=== PATIENT | female | born 1985 | race Caucasian/White ===

== ENCOUNTER 2020-08-22 02:07 | Emergency (ER) | payer MEDICAID, SELFPAY ==
[2020-08-22 02:11] VITALS: BP 140/92; PULSE 82; RESP 18; O2SAT 98; BMI 28.3
--- NOTE | 2020-08-22 02:19 | PC.NURSE ---
PATIENT IN THE NURSES STATION, REFUSING TO WEAR A MASK, REPEATEDLY TOLD BY NURSING STAFF AND SECURITY TO STEP OUT OF THE NURSES STATION FOR PATIENT CONFIDENTIALITY. PATIENT I AM JUST GONNA LEAVE YOU WON'T HELP ME UNABLE TO COMPLETE A FULL TRIAGE BEFORE PATIENT WALKING OUT OF DEPARTMENT. STILL REFUSING TO WEAR A MASK.
== END 2020-08-22 02:36 | disposition left against medical advice (07) ==
LOC: HO.ED 02:34
PROVIDERS: Emergency Provider Emergency Medicine
DX: F19.90 Other psychoactive substance use, unspecified, uncomplicated (principal)
CPT/HCPCS: 99281; 99282

== ENCOUNTER 2023-01-24 21:33 | Inpatient (IN) | payer MEDICAID, SELFPAY ==
--- NOTE | 2023-01-24 | ECG_ITS ---
Test Reason : WEAKNESS Blood Pressure : / mmHG Vent. Rate : 094 BPM Atrial Rate : 094 BPM P-R Int : 112 ms QRS Dur : 084 ms QT Int : 368 ms P-R-T Axes : 064 067 009 degrees QTc Int : 460 ms Normal sinus rhythm Nonspecific ST abnormality Inferior leads Abnormal ECG No previous ECGs available Referred By: Generic ED Physician Electronically Signed By:JONO GRANT MD
--- NOTE | ~2023-01-24 | US_ITS ---
EXAMINATION: US OB LIMITED CLINICAL INFORMATION: Miscarriage. Dilatation and curettage performed in OR. COMPARISON: Pelvic ultrasound from 01/24/2023 TECHNIQUE: Limited sonographic imaging of the pelvis is performed using a transabdominal transducer. FINDINGS: This ultrasound examination is performed in the operating room to assist in dilatation and curettage procedure performed by Dr. Purcell. The initial images show a thickened, heterogeneous appearance of the endometrium. The final image shows that the measured endometrium is more homogeneous with thickness of 0.7 cm AP. US/US OB limited IMPRESSION: Limited sonographic imaging of the pelvis performed during dilatation and curettage procedure.
--- NOTE | ~2023-01-24 | US_ITS ---
EXAMINATION: US OBSTETRICAL ULTRASOUND CLINICAL INFORMATION: Miscarriage. COMPARISON: None available. LMP: 4 months prior. TECHNIQUE: Transabdominal ultrasound performed. FINDINGS: The uterus measures 11.6 x 7.1 x 6.5 cm. There is a thickened heterogeneous endometrium measuring 1.8 cm with areas of both increased and diminished echogenicity. There is also mixed echogenicity material within the cervical canal. No gestational sac is seen. MATERNAL ADNEXA: The right maternal ovary not seen. The left maternal ovary measures 2.5 x 1.7 x 1.3. There is a small to moderate amount of free fluid within the cul-de-sac. US/US OB <= 14 weeks fetus IMPRESSION: No intrauterine gestational sac. Thickened heterogeneous endometrium and heterogeneous material within the cervical canal. Consider spontaneous in progress. Free fluid within the cul-de-sac of uncertain significance. Ectopic is not entirely excluded and correlation with quantitative beta-hCG and follow-up needed.
[2023-01-24 21:37] VITALS: BP 105/77; PULSE 97; BMI 25.8
[2023-01-24 21:56] VITALS: BP 98/81; PULSE 89; RESP 14; TEMP 37.1; O2SAT 97
[2023-01-24 21:59] VITALS: BP 104/55
--- NOTE | 2023-01-24 22:09 | ED_ITS ---
HPI - Female Genitourinary General Chief complaint: Vaginal Bleeding Stated complaint: menstural bleeding heavy x1wk, dizzy, possible sz? Time Seen by Provider: 01/24/23 22:09 Source: patient Mode of arrival: EMS Limitations: no limitations History of Present Illness HPI Narrative: Patient's history of dysfunctional uterine bleed did not have any menstruation For last 4 months, started vaginal bleeding 1 week ago multiple pads more than 10 a day today patient started bleeding heavy and use 10 pads in last 1 hour with heavy blood clots had vasovagal syncope episode when EMS reached was sweaty and pale Related Data Allergies Allergy/AdvReac Type Severity Reaction Status Date / Time No Known Allergies Allergy Unverified 11/28/19 18:57 [No Known Allergies*] Review of Systems 2 Review of Systems: Yes all other systems are reviewed and are negative [facility] Social History Social History Smoked in Last 30 Days: No Advance Directives: No Advance Directives Information Provided: No Physical Exam 2 Vital Signs: Vital Signs: Last Vital Signs Temp 98.0 F 01/24/23 23:54 Pulse 90 01/25/23 00:26 Resp 17 01/25/23 00:26 BP 97/82 01/25/23 00:26 Pulse Ox 97 01/24/23 21:56 O2 Del Method Room Air 01/24/23 21:56 BMI result Body Mass Index 25.8 Appearance: Alert. Oriented X3. Pale and sweaty Eyes:pallor+ ENT: Pharynx normal. Oral Mucosa moist Neck: Normal inspection. Neck supple. CVS: Normal heart rate and rhythm. Pulses normal. Respiratory: No respiratory distress. Equal air entry bilateral, no wheezing/rales/rhonchi Abdomen: Soft and nontender. Bowel sounds are present, no mass palpable done by Dr. Purcell white tissue with blood clot ++ Skin: Skin warm and dry. Normal skin color. Normal skin turgor. Extremities: No lower extremity edema. No calf tenderness Neuro: Oriented X 3. No motor deficit. Medications Administered Discontinued Medications Generic Name Dose Route Start Last Admin Trade Name Freq PRN Reason Stop Dose Admin Doxycycline Monohydrate 200 mg 01/25/23 00:07 01/25/23 00:22 Doxycycline Monohydrate 100 Mg Capsule PO 01/25/23 00:08 200 mg ONCE ONE Administration Sodium Chloride 1,000 mls @ 999 mls/hr 01/24/23 22:45 01/24/23 23:33 Ns IV 01/24/23 23:45 Infused .Q1H1M ONE Infusion Sodium Chloride 100 mls @ 100 mls/hr 01/24/23 22:46 01/25/23 00:08 Ns IV 01/24/23 23:45 100 mls/hr ONCE ONE Administration Morphine Sulfate 2 mg 01/24/23 22:45 01/24/23 22:51 Morphine Sulfate 2 Mg/Ml Cartridge IVPUSH 01/24/23 22:46 2 mg ONCE ONE Administration Protocol Medical Decision Making Medical Decision Making MDM Narrative: 00:05 Patient with miscarriage with heavy vaginal bleeding ultrasound without any gestation sac, seen by her quality control microbiologist Dr. Purcell will take patient to OR for D and C patient will be getting 2 units of PRBC in the ER along with saline blood pressure 127/61 pulse rate 87 Differential Diagnosis Differential Diagnoses: The differential diagnosis associated with the presentation includes Miscarriage/DUB Admission/Observation Consideration of admission/observation: Escalation of care including admission/observation considered Consult Healthcare Provider Management of the patient was discussed with: Junior Staff Accountant Lab Data [facility] Lab Attestation statement: I reviewed the patient's lab results. 01/24/23 22:28 01/24/23 22:28 Labs: Lab Results 01/24/23 01/24/23 Range/Units 22:28 22:37 WBC 16.3 H (4.8-10.8) X10*3/uL RBC 2.49 L (4.20-5.50) X10*6/uL Hgb 6.4 L* (12.0-16.0) g/dl Hct 20.5 L* (37.0-47.0) % MCV 82.3 (80.0-98.0) fL MCH 25.7 L (27.0-33.0) pg MCHC 31.2 (31.0-35.0) g/dl RDW 15.3 (11.0-16.0) % Plt Count TNP MPV 12.8 H (9.4-12.3) fL Immature Gran % (Auto) 0.4 (0.0-0.4) % Neut % (Auto) 80.7 H (45-73) % Lymph % (Auto) 11.7 L (20-40) % [place] % (Auto) 5.4 (2-11) % Eos % (Auto) 1.5 (0-4) % Baso % (Auto) 0.3 (0-2) % Lymph # (Auto) 1.9 (1.2-4.9) X10*3/uL [place] # (Auto) 0.9 (0.1-1.2) X10*3/uL Eos # (Auto) 0.3 (0.0-0.4) X10*3/uL Baso # (Auto) 0.1 (0.0-0.2) X10*3/uL Abs Immat Gran (auto) 0.06 H (0.00-0.03) X10*3/uL Absolute Neuts (auto) 13.2 H (2.0-8.3) x10*3/uL Absolute Nucleated RBC 0.000 (0.0-0.012) X10*3/uL Nucleated RBC % (auto) 0.0 (0.0-0.2) /100WBC PT 13.2 (11.1-13.3) SEC INR 1.1 (0.9-1.1) APTT 27.8 (26.0-36.4) SEC Sodium 137 (135-145) mmol/L Potassium 4.2 (3.3-5.1) mmol/L Chloride 107 (96-108) mmol/L Carbon Dioxide 21 L (22-29) mmol/L Anion Gap 13 (12-20) BUN 11 (9-16) mg/dL Creatinine 0.66 (0.5-1.4) mg/dL Estim Creat Clear Calc 114.8 Estimated GFR > 60 Random Glucose 143 H (60-115) mg/dL Calcium 8.6 (8.4-10.2) mg/dL Total Bilirubin 0.1 (0.0-1.0) mg/dL AST 19 (5-31) U/L ALT 6 (0-31) U/L Alkaline Phosphatase 47 (39-117) U/L Total Protein 6.7 (6.5-8.0) g/dL Albumin 3.2 L (3.5-5.0) g/dL Beta HCG, Quant 50493 mIU/mL Blood Type O Positive Antibody Screen NEGATIVE Crossmatch See Detail Independent Interpretation I performed an independent interpretation of an: Ultrasound Radiology Impression Discussion of test interpretation with radiology: I have reviewed the radiologist's reading. Critical Care Time Critical Care Time Critical Care Time: Yes Total Critical Care Time: 60 Attestation: The patient was critically ill with a high probability of imminent or life threatening deterioration. I spent greater than 65 minutes of discontinuous time evaluating the patient,delivering critical care at the bedside, discussing and evaluating pertinent data with consultants. Critical care time does not include time spent performing separately billable procedures or teaching. Total time spent performing critical care was 60 minutes. Discharge Plan Discharge Clinical Impression: Vaginal bleeding, Spontaneous miscarriage, Severe anemia Patient Disposition: Admitted As Inpatient
[2023-01-24 22:33] LABS: MANUAL DIFF FLAG NO
[2023-01-24 22:41] LABS: Basophils Absolute Auto 0.1 X10*3/uL (0.0-0.2); Basophils Percent Auto 0.3 % (0-2); Eosinophils Absolute Auto 0.3 X10*3/uL (0.0-0.4); Eosinophils Percent Auto 1.5 % (0-4); Imm Gran Abs Auto 0.06 X10*3/uL (0.00-0.03); Imm Gran Pct Auto 0.4 % (0.0-0.4); Lymphocytes Absolute Auto 1.9 X10*3/uL (1.2-4.9); Lymphocytes Percent Auto 11.7 % (20-40); Mean Corpuscular HGB Conc 31.2 g/dl (31.0-35.0); Mean Corpuscular Hemoglobin 25.7 pg (27.0-33.0); Mean Corpuscular Volume 82.3 fL (80.0-98.0); Mean Platelet Volume 12.8 fL (9.4-12.3); Monocytes Absolute Auto 0.9 X10*3/uL (0.1-1.2); Monocytes Percent Auto 5.4 % (2-11); Neutrophils Absolute Auto 13.2 x10*3/uL (2.0-8.3); Neutrophils Percent Auto 80.7 % (45-73); PLT CLUMP 1; Red Blood Count 2.49 X10*6/uL (4.20-5.50); Red Cell Distribution Width 15.3 % (11.0-16.0); SCAN SMEAR FLAG 1
[2023-01-24 22:43] LABS: INTERNATIONAL NORM RATIO 1.1 (0.9-1.1); Prothrombin Time 13.2 SEC (11.1-13.3)
[2023-01-24 22:45] LABS: Hematocrit 20.5 % (37.0-47.0); Hemoglobin 6.4 g/dl (12.0-16.0); Partial Thromboplastin Time 27.8 SEC (26.0-36.4)
[2023-01-24] MEDS: Morphine Sulfate 2 MG/ML CARTRIDGE IVPUSH (22:51)
[2023-01-24] MEDS: 0.9 % Sodium Chloride 1,000 ML 999 ML IV (22:51)
[2023-01-24 22:58] LABS: Alanine Aminotransferase 6 U/L (0-31); Albumin Level 3.2 g/dL (3.5-5.0); Alkaline Phosphatase 47 U/L (39-117); Anion Gap 13 (12-20); Aspartate Amino Transferase 19 U/L (5-31); Bilirubin Total 0.1 mg/dL (0.0-1.0); Blood Urea Nitrogen 11 mg/dL (9-16); Calcium 8.6 mg/dL (8.4-10.2); Carbon Dioxide 21 mmol/L (22-29); Chloride 107 mmol/L (96-108); Creatinine Clr Calc Pharmacy 114.8; Estimated Glomerular Filt Rate > 60; Glucose Random 143 mg/dL (60-115); Potassium 4.2 mmol/L (3.3-5.1); Sodium 137 mmol/L (135-145); Total Protein 6.7 g/dL (6.5-8.0); White Blood Count 16.3 X10*3/uL (4.8-10.8)
[2023-01-24 23:22] LABS: HCG Quantitative 44939 mIU/mL
[2023-01-24 23:37] VITALS: BP 108/55; PULSE 98; RESP 18; TEMP 36.9
[2023-01-24 23:54] VITALS: BP 127/61; PULSE 87; RESP 17; TEMP 36.7
[2023-01-25] VITALS (30 sets, daily range): BP systolic 97–139; BP diastolic 50–84; PULSE 63–95; RESP 11–20; TEMP 36.2–37; O2SAT 98–100; BMI 26.6; BMI 26.7
--- NOTE | 2023-01-25 00:06 | PM.GYNCN ---
BUSINESS EXECUTIVE - CN: HPI Data of Consult Consult date: 01/25/23 Primary Care Provider: [facility] Consult Narrative Narrative: I was consulted on Verónica Esqueda who is a 37 year old female para 0 of unknown LMP presented emergency room with few days history of vaginal bleeding at exacerbated today associated passing out, passage of large amount of blood clots and pelvic cramping. No fever or chills no other concerns. The patient was unsure that she is . In the emergency room on arrival H&H was 6.4 and 20.5, blood type O positive, hCG 44,939. 2 units of blood transfusion was ordered and started, IV hydration was initiated. cc:: CC: OB [facility] Social History Social History Smoked in Last 30 Days: No Advance Directives: No Advance Directives Information Provided: No Meds Allergies Allergy/AdvReac Type Severity Reaction Status Date / Time No Known Allergies Allergy Unverified 11/28/19 18:57 [No Known Allergies*] BUSINESS EXECUTIVE Physical Exam Vitals Vital signs: Temp Pulse Resp BP Pulse Ox O2 Del Method 98.0 F 87 17 127/61 97 Room Air 01/24/23 23:54 01/24/23 23:54 01/24/23 23:54 01/24/23 23:54 01/24/23 21:56 01/24/23 21:56 BMI result Body Mass Index 25.8 Female Genitalia (Pelvic) Vulva: No lesions Lesion: Pustule Vagina: Nontender Cervix: Grossly normal Uterus: Normal size Adnexa/Parametria: Adnexal Tenderness: None Additional Comments: Evidence of active vaginal bleeding with Large amount of blood clots and products of conception in the vagina. Products of conception sent to pathology. BUSINESS EXECUTIVE - Results Labs 01/24/23 22:28 01/24/23 22:28 Labs: Short CBC 01/24/23 Range/Units 22:28 WBC 16.3 H (4.8-10.8) X10*3/uL Hgb 6.4 L* (12.0-16.0) g/dl Hct 20.5 L* (37.0-47.0) % Plt Count TNP BMP 01/24/23 22:28 Sodium 137 Potassium 4.2 Chloride 107 Carbon Dioxide 21 L BUN 11 Creatinine 0.66 Calcium 8.6 Liver Function 01/24/23 Range/Units 22:28 Total Bilirubin 0.1 (0.0-1.0) mg/dL AST 19 (5-31) U/L ALT 6 (0-31) U/L Alkaline Phosphatase 47 (39-117) U/L Albumin 3.2 L (3.5-5.0) g/dL Antibody Screen Antibody Screen NEGATIVE 01/24/23 22:37 Assessment and Plan (1) Incomplete : Status: Acute BV panel, Trichomonas and GC and chlamydia with pathology of the products of conception in the vagina were sent to pathology. Discussed with the patient the clinical findings pelvic exam showing large amount of blood clots and passage of tissue was addition to acute blood loss active vaginal bleeding pointing towards incomplete , recommended suction D&C, all pros, cons, risks and benefits were discussed with the patient and the patient the decided to go ahead with Suction D&C. so a more detailed discussion about the procedure was carried on with the patient including the technique, risks including but not limited to : bleeding, infection, uterine perforation, injury to blood vessels, bowels, ureters, bladder, possible need for blood transfusion with all its risks ( HIV, Hep b or C, anaphylaxis reactions), possible need for laparoscopy, laparotomy, or hysterectomy, possible , thromboembolic events, possibility of a negative impact on future fertility because of scar tissue development inside the uterus; alternatives of this option were discussed with the patient including but not limited to, medical termination of or doing nothing. The patient decided to go ahead with Suction D&C and signed the consent. All questions answered, the patient verbalized understanding and agreed with the plan. Doxycycline 200 mg p.o. preop given to the patient. Ultrasound notified. Type and screen sent, and 4 units of RBCs with 4 units of FFP started, 1 packed RBC transfusion initiated and IV hydration started. Instructions given the patient to schedule a 2 week postoperative appointment. This note was generated with a voice recognition program. Some errors may have been overlooked during the review of this note. Sometimes these errors may affect the content or meaning of a given sentence. (2) Anemia: Status: Acute 4 units of packed RBCs with 4 units of FFP is ordered with IV hydration The patient will be admitted postoperatively to ICU for observation/blood transfusion management The case has been signed out to Dr Iverson
--- NOTE | 2023-01-25 00:09 | PC.NURSE ---
blood rate increased by provider
--- NOTE | 2023-01-25 00:12 | HO.ANESPROP2 ---
HPI - Anesthesia Eval Consult details Narrative: incopmlete , vaginal bleeding PMFSH Active Problems Active Problems: All Active Problems (Updated 01/25/23 @ 00:11 by Jorge Purcell MD) Anemia (Acute) Incomplete (Acute) Past Medical History Medical History (Updated 01/25/23 @ 01:53 by Nomi Gallagher MD) Asthma Family History Family history of problems with anesthesia: No Surgical History History of Problems with Anesthesia: No Social History Social History Smoked in Last 30 Days: No Advance Directives: No Advance Directives Information Provided: No Meds Allergies Allergy/AdvReac Type Severity Reaction Status Date / Time No Known Allergies Allergy Unverified 11/28/19 18:57 [No Known Allergies*] Active Medications: Current Medications Doxycycline Monohydrate (Doxycycline Monohydrate 100 Mg Capsule) 200 mg PO ONCE ONE Stop: 01/25/23 00:08 Exam Exam Date and Time: January 25, 2023 0012 Height,Weight and Vital Signs: Height 5 ft 5 in Weight 70.3 kg Last Vital Signs Temp 98.0 F 01/24/23 23:54 Pulse 87 01/24/23 23:54 Resp 17 01/24/23 23:54 BP 127/61 01/24/23 23:54 Pulse Ox 97 01/24/23 21:56 O2 Del Method Room Air 01/24/23 21:56 Pertinent Lab Results Pertinent Lab Results: Laboratory Tests 01/24/23 01/24/23 22:28 22:37 WBC 16.3 H RBC 2.49 L Hgb 6.4 L* Hct 20.5 L* MCV 82.3 MCH 25.7 L MCHC 31.2 RDW 15.3 Plt Count TNP MPV 12.8 H Immature Gran % (Auto) 0.4 Neut % (Auto) 80.7 H Lymph % (Auto) 11.7 L [place] % (Auto) 5.4 Eos % (Auto) 1.5 Baso % (Auto) 0.3 Lymph # (Auto) 1.9 [place] # (Auto) 0.9 Eos # (Auto) 0.3 Baso # (Auto) 0.1 Abs Immat Gran (auto) 0.06 H Absolute Neuts (auto) 13.2 H Absolute Nucleated RBC 0.000 Nucleated RBC % (auto) 0.0 PT 13.2 INR 1.1 APTT 27.8 Sodium 137 Potassium 4.2 Chloride 107 Carbon Dioxide 21 L Anion Gap 13 BUN 11 Creatinine 0.66 Estim Creat Clear Calc 114.8 Estimated GFR > 60 Random Glucose 143 H Calcium 8.6 Total Bilirubin 0.1 AST 19 ALT 6 Alkaline Phosphatase 47 Total Protein 6.7 Albumin 3.2 L Beta HCG, Quant 88862 Blood Type O Positive Antibody Screen NEGATIVE Crossmatch See Detail Airway Mallampati Class: I TM Dist: >3cm Neck ROM: Full Loose/Missing/Broken Teeth: No Heart: RRR Lungs: CTA Assessment and Plan Assessment Anesthesia Assessment: Anesthesia Plan Discussed and Chart Reviewed Final Anesthetic Review Family History of Problems with Anesthesia: No History of Problems with Anesthesia: No NPO: Yes ASA Class: II and Emergency Final Preanesthetic Review: No Changes in Pt Med Stat, Meds/Allgs Chart Reviewed, Consent Obtained/Reviewed and Anes Risks/Benef Reviewed Patient Risk: Low Procedure Risk: Low Anesthetic Plan Anesthetic Plan: GA Disposition: Standard PACU
[2023-01-25] MEDS: Doxycycline Monohydrate 100 MG CAPSULE 200 MG PO (00:22)
--- NOTE | 2023-01-25 00:27 | PC.NURSE ---
report given to AUTOMATED TELLER MANAGER
--- NOTE | 2023-01-25 01:22 | P.BOP_ITS ---
Brief Operative Note Date of Service: 01/25/23 Pre-op diagnosis: Incomplete Post-op diagnosis: same Procedure: Suction D&C Surgeon: Jorge Purcell MD Anesthesia: GLMA Was an Microfabrication Engineer Manager used for this Procedure?: No Estimated blood loss (mL): 100 Pathology: other (Products of conception) Condition: stable Disposition: PACU
--- NOTE | 2023-01-25 01:23 | P.OP_ITS ---
Operative Note Operative Note Date of Service: 01/25/23 Narrative: Preop diagnosis: Incomplete Operation: suction D and C Postop diagnosis: The same EBL: Minimal Anesthesia: MAC Surgeon: oJrge Purcell MD, FACOG Emergency Preparedness Coordinator: None Pathology: Products of conception Procedure: The patient was put in a dorsal distal mid position was scrubbed and draped in the usual sterile fashion. A sterile speculum was inserted inside the patient's vagina the anterior lip of the cervix was grasped with single-tooth tenaculum the cervix was dilated up to 7 mm. Under ultrasonographic guidance flexible 7. Suction tip was introduced inside the patient ran cavity till the fundus was hit then turning the suction 360 degrees around products of conception was sucked out toward the uterine cavity. The suction tip was taken out of the patient uterine cavity sharp curettings was followed in 4 quadrants of the uterus till a gritty feeling was felt. The suction tip was reintroduced under ultrasonographic guidance and intrauterine blood was sucked. The suction tip was taken out. Single-tooth tenaculum was removed hemostasis assured using pressure. The patient tolerated the procedure well and was transferred to the PACU in a stable condition. The patient received 2 units of packed RBCs intraoperatively with 1 unit of FFP started, 2 additional unit of packed RBCs with 3 additional units FFP ordered
--- NOTE | 2023-01-25 01:49 | P.HPCC_ITS ---
History of Present Illness Date of Service: 01/25/23 Attending physician on admission: Nilesh Iverson Chief Complaint: Vaginal bleeding The patient is a 37-year-old female with no known medical history who presented to the emergency room with vaginal bleed. ? She reported no menstruation for the past 4 months, but in the last week has had increase amount of bleeding, today reports using 10 pads in last 1 hour with heavy blood clots. She also reproted multiple vasovagal syncope episodes when EMS reached she was sweaty and pale.? Laboratory data was significant for? the BC 16.3, hemoglobin 6.4,? hematocrit 20.5, hCG [id number]. Film Masker,Dr. Purcell,? consulted by ED physician,? who noted patient with miscarriage with heavy vaginal bleeding ultrasound without any gestation sac? patient was taken to the OR for? dilation and curettage procedure.? Patient admitted to the? the ICU for hemodynamic? monitoring Review of Systems 2 Review of Systems: as per HPI Yes all other systems are reviewed and are negative PMFSH Past Medical History Medical History (Updated 01/25/23 @ 02:28 by Cherise Lovelace NP) Asthma Social History Social History Household Members: Significant Other Household Members Other:: MOTHER IN LAW Housing: House Do you presently have visiting nurse or other home services: No Patient Tobacco Use Status: Never used Tobacco Smoked in Last 30 Days: No e-Cigarette/Vaping Use: Never Used Second Hand Smoke Exposure: No Use of substances other than those prescribed or required for medical reasons: Yes Substance Use Type: Crack/Cocaine and Marijuana Substance Use Frequency: Socially Last Used Substance: Weeks (ago) Last Used Substance Other:: MARIJUANA Currently Displaying Signs/Symptoms of Drug Intoxication Withdrawal: No Any prior treatment program specific to substance use: Yes (2 YEARS AGO) Have you been hit, kicked, punched, or otherwise hurt by someone within the past year? If so, by whom?: No Do you feel safe in your current relationship?: Yes Is there a partner from a previous relationship who is making you feel unsafe now?: No Are you made to feel afraid or neglected: No Spiritual Healthcare Practices: NONE Islam Healthcare Practices: NONE Cultural Healthcare Practices: NONE Advance Directives: No Advance Directives Information Provided: No Do you have thoughts of harming others: None Do you have a plan to hurt others: No Plan Recently lost weight without trying: No Eating poorly because of decreased appetite: Yes Nutrition Risks: No Nutritional Risk Patient : No : No Poor oral hygiene: No Meds Allergies Allergy/AdvReac Type Severity Reaction Status Date / Time No Known Allergies Allergy Unverified 11/28/19 18:57 [No Known Allergies*] Active Medications: Current Medications Sodium Chloride (Ns) 100 mls @ 100 mls/hr IV ONCE ONE Stop: 01/25/23 02:39 Physical Exam 2 Vital Signs: Vital Signs: Last Vital Signs Temp 98.0 F 01/24/23 23:54 Pulse 90 01/25/23 00:26 Resp 17 01/25/23 00:26 BP 97/82 01/25/23 00:26 Pulse Ox 97 01/24/23 21:56 O2 Del Method Room Air 01/24/23 21:56 BMI result Body Mass Index 25.8 ?General:? Alert oriented x3 no acute distress.? Speaking full sentences.? Following all commands. ?HEENT:? Head is normocephalic, atraumatic, pupils equal round reactive to light accommodation bilaterally.? Extraocular movements appear intact.? Buccal mucosa is dry, Neck is supple ?Cardiac:? Clear S1-S2, no murmurs rubs or gallops. ?Pulmonary:? Clear to auscultation, no wheezes, rales or rhonchi. ?Abdomen:? ?Abdomen soft, diffuse tenderness on lower quadrants. non-distended. Normal bowel sounds. No pulsatile mass. No hepatosplenomegaly. ?Musculoskeletal:? Moving all 4 extremities upon request a major joints, there is no crepitus or tenderness.? The strength is 5/5 bilaterally and throughout all 4 extremities.? Gait not assessed at this point. ?Neurologic:? cranial nerves 2-12 are grossly intact.? No focal deficits noted. Motor strength as above.?? ?Skin:? Intact, no lesions, edema, erythema, clubbing or cyanosis.? No ulcers. Vascular:? 2+ pulses upper and lower extremities distally.? Results Labs 01/25/23 01:57 01/25/23 01:57 Labs: Laboratory Results - last 24 hr 01/24/23 01/24/23 22:28 22:37 MCV 82.3 MCH 25.7 L MCHC 31.2 RDW 15.3 Plt Count TNP MPV 12.8 H Immature Gran % (Auto) 0.4 Neut % (Auto) 80.7 H Lymph % (Auto) 11.7 L [place] % (Auto) 5.4 Eos % (Auto) 1.5 Baso % (Auto) 0.3 Lymph # (Auto) 1.9 [place] # (Auto) 0.9 Eos # (Auto) 0.3 Baso # (Auto) 0.1 Abs Immat Gran (auto) 0.06 H Absolute Neuts (auto) 13.2 H Absolute Nucleated RBC 0.000 Nucleated RBC % (auto) 0.0 PT 13.2 INR 1.1 APTT 27.8 Anion Gap 13 Estim Creat Clear Calc 114.8 Estimated GFR > 60 Random Glucose 143 H Calcium 8.6 Total Bilirubin 0.1 AST 19 ALT 6 Alkaline Phosphatase 47 Total Protein 6.7 Albumin 3.2 L Beta HCG, Quant [id number] Blood Type O Positive Antibody Screen NEGATIVE Crossmatch See Detail Imaging Radiologist's Impressions: Impressions Ultrasound 01/24/23 23:50 IMPRESSION: No intrauterine gestational sac. Thickened heterogeneous endometrium and heterogeneous material within the cervical canal. Consider spontaneous in progress. Free fluid within the cul-de-sac of uncertain significance. Ectopic is not entirely excluded and correlation with quantitative beta-hCG and follow-up needed. Assessment and Plan (1) Incomplete : Status: Acute (2) Acute blood loss anemia: Status: Acute Plan 37 year female with no known past medical history who presented with incomplete status post D&C Neuro: ? No acute issues Cardiac:? No acute issues Pulmonary: ? No acute issues Renal:?No acute issues? GI:???No acute issues Endo:???No acute issues ?OBGYN:? Incomplete ? status post D&C By Dr Purcell.? Appreciate OBGYN recommendations.? Continue with pain management ID: Leukocytosis, from incomplete .? No evidence of severe infection, lactic is negative . Heme/Onc:?? Acute blood loss anemia:? from incomplete .? Continue to monitor hemoglobin and hematocrit. Psych:? No acute issues. Miscellaneous:? No acute issues. ?Prophylaxis:? compression device? due to acute? bleed ?Critical care time: 30 x minutes of critical care time.?? CODE: FULL Case discussed with attending Dr Iverson
[2023-01-25 02:07] LABS: VBG Base Excess -4.8 mmol/L; VBG HCO3 21 mmol/L (22-26); VBG pCO2 42 mmHg; VBG pH 7.29 (7.32-7.43); VBG pO2 27 mmHg
[2023-01-25 02:09] LABS: PLT CLUMP 1; SCAN SMEAR FLAG 1
[2023-01-25 02:14] LABS: Eosinophils Percent Auto 0.2 % (0-4); Lymphocytes Percent Auto 6.5 % (20-40)
[2023-01-25 02:16] LABS: Basophils Percent Auto 0.2 % (0-2); Fibrinogen 569 MG/DL (259-690); INTERNATIONAL NORM RATIO 1.1 (0.9-1.1); Imm Gran Abs Auto 0.06 X10*3/uL (0.00-0.03); Imm Gran Pct Auto 0.5 % (0.0-0.4); Lymphocytes Absolute Auto 0.8 X10*3/uL (1.2-4.9); MANUAL DIFF FLAG SCAN; Mean Corpuscular Hemoglobin 27.7 pg (27.0-33.0); Mean Corpuscular Volume 86.6 fL (80.0-98.0); Monocytes Absolute Auto 0.3 X10*3/uL (0.1-1.2); Monocytes Percent Auto 2.1 % (2-11); Neutrophils Absolute Auto 11.2 x10*3/uL (2.0-8.3); Neutrophils Percent Auto 90.5 % (45-73); Prothrombin Time 13.6 SEC (11.1-13.3); Red Blood Count 2.31 X10*6/uL (4.20-5.50)
[2023-01-25] MEDS: fentaNYL citrate/PF 100 MCG/2 ML VIAL 50 MCG IVPUSH ×6 (02:16→16:04)
[2023-01-25 02:17] LABS: White Blood Count 12.4 X10*3/uL (4.8-10.8)
[2023-01-25 02:18] LABS: Lactic Acid 0.8 mmol/L (0.5-2.0)
[2023-01-25 02:19] LABS: Hemoglobin 6.4 g/dl (12.0-16.0)
[2023-01-25 02:25] LABS: Alanine Aminotransferase < 5 U/L (0-31); Albumin Level 2.9 g/dL (3.5-5.0); Alkaline Phosphatase 42 U/L (39-117); Anion Gap 8 (12-20); Aspartate Amino Transferase 11 U/L (5-31); Bilirubin Total 0.9 mg/dL (0.0-1.0); Blood Urea Nitrogen 9 mg/dL (9-16); Calcium 7.2 mg/dL (8.4-10.2); Carbon Dioxide 21 mmol/L (22-29); Chloride 112 mmol/L (96-108); Creatinine Clr Calc Pharmacy 140.3; Estimated Glomerular Filt Rate > 60; Glucose Random 110 mg/dL (60-115); Magnesium 1.3 mg/dL (1.6-2.6); Phosphorus 2.9 mg/dL (2.7-4.5); Potassium 4.2 mmol/L (3.3-5.1); Sodium 137 mmol/L (135-145); Total Protein 5.4 g/dL (6.5-8.0)
[2023-01-25] MEDS: Calcium Gluconate/NaCl,Iso-Osm 2 GM/100 ML PLAST..BAG IV ×2 (02:37→09:37)
[2023-01-25 02:38] LABS: SLIDE REVIEW VERIFIED
[2023-01-25] MEDS: Magnesium Sulfate/H2O 2 GM/50 ML PIGGYBACK IV (02:42)
[2023-01-25 03:00] LABS: Venous Blood Gas Refer to POC result
--- NOTE | 2023-01-25 03:04 | PC.NURSE ---
PT TO ICU FROM OR. LETHARGIC BUT RESPONSIVE AND C/O ABD PAIN/CRAMPING. BP STABLE 114/60. MONITOR SHOWS NSR, RATE 90'S, NO ECTOPY. ROBERTH PHYSICIAN RELATIONS MANAGER AT BEDSIDE. PT RECEIVED 1 UNIT OF BLOOD IN ER, 1 UNIT OF BLOOD IN OR AND 1 FFP INFUSING UPON ARRIVAL WITH SECOND FFP READY TO GO. BLOODWORK DRAWN AND RESULTS SHOWED HGB 6.4/HCT 20. SECOND FFP HUNG IN ICU AND THIRD RBC UP AT THIS TIME. MAGNESIUM CRIT VALUE 1.3 AND 2GM IV MAG ORDERED AND UP. PT ALSO RECEIVING CALCIUM GLUCONATE ORDERED. PITOCIN TONGUE CARRIER FINISHING ORDERED BY DR LEW BUT PAUSED AT THIS TIME FOR BLOOD PRODUCTS/MEDS.
--- NOTE | 2023-01-25 06:31 | PC.NURSE ---
PT RECEIVED A TOTAL OF 3 UNITS PRBCS WITH THE 4TH INFUSING PRESENTLY, 2 FFP'S WITH THE 3RD INFUSING PRESENTLY AND 1 PLTS. SHE IS HEMODYNAMICALLY STABLE. BP STABLE 126/62. MONITOR: NSR, RATE 70'S-80'S, NO ECTOPY. VOIDED ON BEDPAN 1000 ML CLEAR ALLYSSA URINE. JUANITA CARE GIVEN. JUANITA PAD IN PLACE AND CHANGED FOR A SMALL AMOUNT OF SPOTTING. PT C/O ABD CRAMPING. RETURNED TO ICU WITH PITOCIN DRIP, 20 UNITS, INFUSING AND COMPLETED. GOOD EFFECT ON PAIN WITH FENTANYL Q2HR PRN. PT IN GOOD SPIRITS, CALM AND COOPERATIVE. TAKING ICE CHIPS PO. NO N OR V NOTED.
[2023-01-25] MEDS: Sodium,Potassium Phosphates POWD.PACK 2 PACKET PO (09:37)
--- NOTE | 2023-01-25 09:47 | MHC.CM.PN ---
CM MET WITH PT AT BEDSIDE IN ICU. PT LIVES WITH S/O AND IS INDEPENDENT AT BASELINE. NO COVID VAX PT STATES SHE HAS HCP BUT UNSURE WHERE. DOES NOT WISH TO COMPLETE A NEW ONE. PCP AT [facility]. DP: HOME, NO SERVICES ANTICIPATED. [facility] WILL TRANSPORT PT HOME ON DC. CM WILL CONTINUE TO FOLLOW FOR ANY CHANGE IN DC NEEDS/PLAN.
--- NOTE | 2023-01-25 09:48 | PHA.MEDREC ---
Pharmacy Consult ? Medication Reconciliation Pharmacy has completed the medication reconciliation.PT CONFIRMS SHE DOESN'T USE ANY REGULAR HOME MEDICATIONS
[2023-01-25 10:14] LABS: Basophils Percent Auto 0.2 % (0-2); Monocytes Absolute Auto 0.6 X10*3/uL (0.1-1.2); Monocytes Percent Auto 6.7 % (2-11); PLT CLUMP 1; SCAN SMEAR FLAG 1
[2023-01-25 10:19] LABS: Eosinophils Percent Auto 0.4 % (0-4); Hematocrit 26.1 % (37.0-47.0); Hemoglobin 8.9 g/dl (12.0-16.0); Imm Gran Abs Auto 0.04 X10*3/uL (0.00-0.03); Imm Gran Pct Auto 0.4 % (0.0-0.4); Lymphocytes Absolute Auto 1.5 X10*3/uL (1.2-4.9); Lymphocytes Percent Auto 15.8 % (20-40); MANUAL DIFF FLAG SCAN; Mean Corpuscular HGB Conc 34.1 g/dl (31.0-35.0); Neutrophils Absolute Auto 7.3 x10*3/uL (2.0-8.3); Neutrophils Percent Auto 76.5 % (45-73); Red Blood Count 3.07 X10*6/uL (4.20-5.50); Red Cell Distribution Width 14.5 % (11.0-16.0)
[2023-01-25 10:55] LABS: SLIDE REVIEW VERIFIED; White Blood Count 9.6 X10*3/uL (4.8-10.8)
[2023-01-25 11:00] LABS: CT PCR NOT DETECTED (Not Detect.); NG PCR NOT DETECTED (Not Detect.)
[2023-01-25 12:03] LABS: BV Int Neg Control Negative (Negative)
[2023-01-25 12:04] LABS: BV Int Pos Control Positive (Positive)
--- NOTE | 2023-01-25 12:45 | PC.NURSE ---
assumed care of patient 0700 Per MD finish current blood products transfusing (1 RBC, 1 FFP) and then recheck CBC at 10:00 10:00 H+H improved to 8.9/26.1. Reported results to MD. Per MD hold remaining orders for transfusion of 1 RBC, 1 FFP
--- NOTE | 2023-01-25 13:37 | P.PNOB_ITS ---
BUS AND SYS INTEGRATION SENIOR MANAGER - Subjective Subjective Date of Service: 01/25/23 Interval history: Doing well with mild pelvic cramping. Minimal vaginal spotting, no vaginal bleeding. Ambulating, tolerating p.o. diet Received 5 units of packed RBCs, 4 units of FFP is and 1 unit of platelet, observed overnight in ICU H&H at 10:00 was 8.9/26.1 SAP BUSINESS ANALYST Physical Exam Vitals Vital signs: Temp Pulse Resp BP Pulse Ox O2 Del Method O2 Flow Rate 97.2 F 75 16 122/73 100 Room Air 4 01/25/23 12:00 01/25/23 13:00 01/25/23 13:00 01/25/23 13:00 01/25/23 13:00 01/25/23 13:00 01/25/23 05:00 BMI result Body Mass Index 26.7 Abdomen Auscultation/Inspection/Palpation: Normal bowel sounds, Soft and No tenderness BUS AND SYS INTEGRATION SENIOR MANAGER - Prog Note: Results Labs 01/25/23 09:59 01/25/23 01:57 Labs: Laboratory Results - last 24 hr 01/24/23 01/24/23 01/25/23 22:28 22:37 00:24 WBC 16.3 H RBC 2.49 L Hgb 6.4 L* Hct 20.5 L* MCV 82.3 MCH 25.7 L MCHC 31.2 RDW 15.3 Plt Count TNP MPV 12.8 H Immature Gran % (Auto) 0.4 Neut % (Auto) 80.7 H Lymph % (Auto) 11.7 L [place] % (Auto) 5.4 Eos % (Auto) 1.5 Baso % (Auto) 0.3 Lymph # (Auto) 1.9 [place] # (Auto) 0.9 Eos # (Auto) 0.3 Baso # (Auto) 0.1 Abs Immat Gran (auto) 0.06 H Absolute Neuts (auto) 13.2 H Absolute Nucleated RBC 0.000 Nucleated RBC % (auto) 0.0 Smear Tech's Comments Smear Path Review SEE NOTE PT 13.2 INR 1.1 APTT 27.8 Fibrinogen VBG pH VBG pCO2 VBG pO2 VBG HCO3 VBG O2 Saturation VBG Base Excess Sodium 137 Potassium 4.2 Chloride 107 Carbon Dioxide 21 L Anion Gap 13 BUN 11 Creatinine 0.66 Estim Creat Clear Calc 114.8 Estimated GFR > 60 Random Glucose 143 H Lactic Acid Calcium 8.6 Phosphorus Magnesium Total Bilirubin 0.1 AST 19 ALT 6 Alkaline Phosphatase 47 Total Protein 6.7 Albumin 3.2 L Beta HCG, Quant 14379 Vernell species DNA Negative Chlam trachomat DNA PCR NOT DETECTED Gardnerella DNA Probe Negative N.gonorrhoeae DNA (PCR) NOT DETECTED Trichomonas DNA Probe Negative Blood Type O Positive Antibody Screen NEGATIVE Crossmatch See Detail 01/25/23 01/25/23 01/25/23 01:57 02:02 02:03 WBC 12.4 H RBC 2.31 L Hgb 6.4 L* Hct 20.0 L* MCV 86.6 MCH 27.7 MCHC 32.0 RDW 17.0 H Plt Count Not Reportable MPV Not Reportable Immature Gran % (Auto) 0.5 H Neut % (Auto) 90.5 H Lymph % (Auto) 6.5 L [place] % (Auto) 2.1 Eos % (Auto) 0.2 Baso % (Auto) 0.2 Lymph # (Auto) 0.8 L [place] # (Auto) 0.3 Eos # (Auto) 0.0 Baso # (Auto) 0.0 Abs Immat Gran (auto) 0.06 H Absolute Neuts (auto) 11.2 H Absolute Nucleated RBC 0.000 Nucleated RBC % (auto) 0.0 Smear Tech's Comments VERIFIED Smear Path Review PT 13.6 H INR 1.1 APTT 28.0 Fibrinogen 569 VBG pH 7.29 L VBG pCO2 42 VBG pO2 27 VBG HCO3 21 L VBG O2 Saturation 42.0 VBG Base Excess -4.8 Sodium 137 Potassium 4.2 Chloride 112 H Carbon Dioxide 21 L Anion Gap 8 L BUN 9 Creatinine 0.54 Estim Creat Clear Calc 140.3 Estimated GFR > 60 Random Glucose 110 Lactic Acid 0.8 Calcium 7.2 L D Phosphorus 2.9 Magnesium 1.3 L* Total Bilirubin 0.9 AST 11 ALT < 5 Alkaline Phosphatase 42 Total Protein 5.4 L Albumin 2.9 L Beta HCG, Quant Vernell species DNA Chlam trachomat DNA PCR Gardnerella DNA Probe N.gonorrhoeae DNA (PCR) Trichomonas DNA Probe Blood Type Antibody Screen Crossmatch 01/25/23 09:59 WBC 9.6 RBC 3.07 L D Hgb 8.9 L D Hct 26.1 L D MCV 85.0 MCH 29.0 MCHC 34.1 RDW 14.5 Plt Count TNP MPV TNP Immature Gran % (Auto) 0.4 Neut % (Auto) 76.5 H Lymph % (Auto) 15.8 L [place] % (Auto) 6.7 Eos % (Auto) 0.4 Baso % (Auto) 0.2 Lymph # (Auto) 1.5 [place] # (Auto) 0.6 Eos # (Auto) 0.0 Baso # (Auto) 0.0 Abs Immat Gran (auto) 0.04 H Absolute Neuts (auto) 7.3 Absolute Nucleated RBC 0.000 Nucleated RBC % (auto) 0.0 Smear Tech's Comments VERIFIED Smear Path Review PT INR APTT Fibrinogen VBG pH VBG pCO2 VBG pO2 VBG HCO3 VBG O2 Saturation VBG Base Excess Sodium Potassium Chloride Carbon Dioxide Anion Gap BUN Creatinine Estim Creat Clear Calc Estimated GFR Random Glucose Lactic Acid Calcium Phosphorus Magnesium Total Bilirubin AST ALT Alkaline Phosphatase Total Protein Albumin Beta HCG, Quant Vernell species DNA Chlam trachomat DNA PCR Gardnerella DNA Probe N.gonorrhoeae DNA (PCR) Trichomonas DNA Probe Blood Type Antibody Screen Crossmatch BUS AND SYS INTEGRATION SENIOR MANAGER - A/P (1) Incomplete : Status: Acute Assessment and Plan: Status post suction D&C, pathology pending. Bleeding resolved Ambulate, regular diet, Tylenol/ibuprofen p.r.n. for pelvic cramps (2) Acute blood loss anemia: Status: Acute Assessment and Plan: Status post 5 units of packed RBC, 4 units of FFP is an 1 unit of platelets Transferred from ICU to telemedicine unit to hospitalist service If stable H&H, asymptomatic anemia, consider discharge to follow-up in the office within 2 weeks Assessment/Plan Procedure/Diagnosis: Procedures Operation Date: 01/24/23 00:05 Actual Procedure Side Surgeon p D&C Suction Not Applicable Jorge Purcell MD Time Spent With Patient Time: Total time managing care of this patient today ____ minutes.
[2023-01-25 18:01] LABS: MANUAL DIFF FLAG NO
[2023-01-25 18:10] LABS: Basophils Percent Auto 0.3 % (0-2); Eosinophils Percent Auto 0.3 % (0-4); Hematocrit 25.7 % (37.0-47.0); Hemoglobin 8.8 g/dl (12.0-16.0); Imm Gran Abs Auto 0.02 X10*3/uL (0.00-0.03); Imm Gran Pct Auto 0.3 % (0.0-0.4); Lymphocytes Absolute Auto 1.4 X10*3/uL (1.2-4.9); Lymphocytes Percent Auto 17.2 % (20-40); Mean Corpuscular HGB Conc 34.2 g/dl (31.0-35.0); Mean Corpuscular Hemoglobin 28.6 pg (27.0-33.0); Mean Corpuscular Volume 83.4 fL (80.0-98.0); Mean Platelet Volume 11.9 fL (9.4-12.3); Monocytes Absolute Auto 0.5 X10*3/uL (0.1-1.2); Monocytes Percent Auto 6.1 % (2-11); Neutrophils Percent Auto 75.8 % (45-73); Platelet Count 153 X10*3/uL (160-400); Red Blood Count 3.08 X10*6/uL (4.20-5.50); Red Cell Distribution Width 14.6 % (11.0-16.0); White Blood Count 7.8 X10*3/uL (4.8-10.8)
[2023-01-25] MEDS: Morphine Sulfate 2 MG/ML CARTRIDGE IVPUSH (20:08)
[2023-01-26] MEDS: Morphine Sulfate 2 MG/ML CARTRIDGE IVPUSH ×2 (00:37→08:24)
[2023-01-26 04:00] VITALS: BP 103/72; PULSE 83; RESP 18; TEMP 37; O2SAT 98
[2023-01-26 07:07] VITALS: BP 129/59; PULSE 56; RESP 18; TEMP 36.4; O2SAT 100
[2023-01-26 08:40] LABS: Anion Gap 10 (12-20); Blood Urea Nitrogen 8 mg/dL (9-16); Calcium 8.9 mg/dL (8.4-10.2); Carbon Dioxide 24 mmol/L (22-29); Chloride 109 mmol/L (96-108); Creatinine Clr Calc Pharmacy 126.1; Estimated Glomerular Filt Rate > 60; Glucose Random 83 mg/dL (60-115); Phosphorus 2.8 mg/dL (2.7-4.5); Potassium 4.1 mmol/L (3.3-5.1); Sodium 139 mmol/L (135-145)
--- NOTE | 2023-01-26 10:43 | MHC.CM.PN ---
Pt has been medically cleared for DC, she will go home via private transport, self care.
[2023-01-26 11:02] VITALS: BP 146/70; PULSE 73; RESP 18; TEMP 36.1; O2SAT 100
[2023-01-26 11:25] LABS: Basophils Percent Auto 0.4 % (0-2); Eosinophils Absolute Auto 0.2 X10*3/uL (0.0-0.4); Eosinophils Percent Auto 2.3 % (0-4); Hematocrit 31.6 % (37.0-47.0); Hemoglobin 10.7 g/dl (12.0-16.0); Imm Gran Abs Auto 0.03 X10*3/uL (0.00-0.03); Imm Gran Pct Auto 0.3 % (0.0-0.4); Lymphocytes Absolute Auto 1.9 X10*3/uL (1.2-4.9); Lymphocytes Percent Auto 20.6 % (20-40); MANUAL DIFF FLAG SCAN; Mean Corpuscular HGB Conc 33.9 g/dl (31.0-35.0); Mean Corpuscular Hemoglobin 28.8 pg (27.0-33.0); Mean Corpuscular Volume 84.9 fL (80.0-98.0); Monocytes Absolute Auto 0.6 X10*3/uL (0.1-1.2); Monocytes Percent Auto 6.5 % (2-11); Neutrophils Absolute Auto 6.3 x10*3/uL (2.0-8.3); Neutrophils Percent Auto 69.9 % (45-73); PLT CLUMP 1; Red Blood Count 3.72 X10*6/uL (4.20-5.50); Red Cell Distribution Width 14.7 % (11.0-16.0); SCAN SMEAR FLAG 1
[2023-01-26 11:53] LABS: SLIDE REVIEW VERIFIED
--- NOTE | 2023-01-26 12:42 | P.DS_ITS ---
DS: Providers Provider Date of Service: 01/26/23 Date of admission: 01/25/23 01:24 Primary care physician: [facility] DS: Diagnosis Discharge Diagnosis (1) Incomplete : Status: Acute (2) Acute blood loss anemia: Status: Acute (3) Symptomatic anemia: Status: Acute DS: Summary Hospital Course Hospital Course: Admission note HPI The patient is a 37-year-old female with no known medical history who presented to the emergency room with vaginal bleed. ? She reported no menstruation for the past 4 months, but in the last week has had increase amount of bleeding, today reports using 10 pads in last 1 hour with heavy blood clots. She also reproted multiple vasovagal syncope episodes when EMS reached she was sweaty and pale.? Laboratory data was significant for? the BC 16.3, hemoglobin 6.4,? hematocrit 20.5, hCG 93424. Thread Grinder,Dr. Purcell,? consulted by ED physician,? who noted patient with miscarriage with heavy vaginal bleeding ultrasound without any gestation sac? patient was taken to the OR for? dilation and curettage procedure.? Patient admitted to the? the ICU for hemodynamic? monitoring Hospital course The patient was taken urgently to OR with dr Purcell who did suction D&C with resolution of bleeding. received total of 5 units PRBCs, 4 units FFP and 1 unit of platelet. Transferred to medical floor as she stabilized and Hb level improved above 8. no recurrence of bleeding overnight as her Hb increased to above 10. To follow up with dr Purcell as outpatient. Time Attestation Discharge coordination time: Greater than 30 minutes Quality: Safe Use of Opioids Does Pt have an Active Cancer Diagnosis on the Problem List?: No Quality: Stroke Does the patient have a stroke diagnosis?: No Physical Exam Vital Signs: Vital Signs: Last Vital Signs Temp 97.0 F 01/26/23 11:02 Pulse 73 01/26/23 11:02 Resp 18 01/26/23 11:02 BP 146/70 H 01/26/23 11:02 Pulse Ox 100 01/26/23 11:02 O2 Del Method Room Air 01/26/23 11:02 O2 Flow Rate 4 01/25/23 05:00 BMI result Body Mass Index 26.7 Const: Other: Constitutional : Awake, interactive, not in distress Neck : Normal inspection, Supple Cardiovascular : RRR, no JVP, no lower extremity edema Respiratory : good bilateral air entry, no crackles, wheezes or rhonchi Gastrointestinal: soft, lax, Normal bowel sounds, Non tender Skin : Warm, Dry Neurological : Alert & oriented x3, No focal deficit , CN 2-12 within normal DS: Data Data Completed and Pending Completed studies during hospitalization [Text1]: Pending at discharge 01/25/23 02:16 Surgical [PTH] Routine Labs on day of discharge: Laboratory Results - last 24 hr 01/24/23 01/25/23 01/26/23 22:37 17:56 07:16 WBC 7.8 RBC 3.08 L Hgb 8.8 L Hct 25.7 L MCV 83.4 MCH 28.6 MCHC 34.2 RDW 14.6 Plt Count 153 L MPV 11.9 Immature Gran % (Auto) 0.3 Neut % (Auto) 75.8 H Lymph % (Auto) 17.2 L [place] % (Auto) 6.1 Eos % (Auto) 0.3 Baso % (Auto) 0.3 Lymph # (Auto) 1.4 [place] # (Auto) 0.5 Eos # (Auto) 0.0 Baso # (Auto) 0.0 Abs Immat Gran (auto) 0.02 Absolute Neuts (auto) 6.0 Absolute Nucleated RBC 0.000 Nucleated RBC % (auto) 0.0 Smear Tech's Comments Sodium 139 Potassium 4.1 Chloride 109 H Carbon Dioxide 24 Anion Gap 10 L BUN 8 L Creatinine 0.61 Estim Creat Clear Calc 126.1 Estimated GFR > 60 Random Glucose 83 Calcium 8.9 D Phosphorus 2.8 Magnesium 2.0 Blood Type O Positive Antibody Screen NEGATIVE Crossmatch See Detail 01/26/23 10:51 WBC 9.0 RBC 3.72 L D Hgb 10.7 L D Hct 31.6 L D MCV 84.9 MCH 28.8 MCHC 33.9 RDW 14.7 Plt Count TNP MPV TNP Immature Gran % (Auto) 0.3 Neut % (Auto) 69.9 Lymph % (Auto) 20.6 [place] % (Auto) 6.5 Eos % (Auto) 2.3 Baso % (Auto) 0.4 Lymph # (Auto) 1.9 [place] # (Auto) 0.6 Eos # (Auto) 0.2 Baso # (Auto) 0.0 Abs Immat Gran (auto) 0.03 Absolute Neuts (auto) 6.3 Absolute Nucleated RBC 0.000 Nucleated RBC % (auto) 0.0 Smear Tech's Comments VERIFIED Sodium Potassium Chloride Carbon Dioxide Anion Gap BUN Creatinine Estim Creat Clear Calc Estimated GFR Random Glucose Calcium Phosphorus Magnesium Blood Type Antibody Screen Crossmatch Imaging Chest x-ray: Radiologist's impression: ITS Impressions Ultrasound 01/24/23 23:50 IMPRESSION: No intrauterine gestational sac. Thickened heterogeneous endometrium and heterogeneous material within the cervical canal. Consider spontaneous in progress. Free fluid within the cul-de-sac of uncertain significance. Ectopic is not entirely excluded and correlation with quantitative beta-hCG and follow-up needed. Obstetrics Ultrasound 01/25/23 01:30 IMPRESSION: Limited sonographic imaging of the pelvis performed during dilatation and curettage procedure. Discharge Plan Discharge Anticipated Discharge Date/Time: 01/26/23 12:38 Patient Disposition: Home, Self-Care Discharge Diagnosis: Symptomatic anemia Incomplete Referrals: [place],[facility] [Primary Care Provider] - 1 Week Discharge Medications: Continued No Known Home Meds Discharge Orders: Discharge Order (Routine); Ordered 01/26/23 Ordered By: Kavya Cortés Diet: Advance to usual diet Activity on Discharge: As tolerated Stand Alone Forms: Patient Portal Discharge page Care Plan Goals: Read below Health Concerns: Read below Plan of Treatment: Read below Assessment: You were admitted to the hospital for urgent gynecological procedure for incomplete associated with blood loss requiring blood transfusion. you were monitored closely in ICU as bleeding stopped and your blood level improved. Follow with dr Purcell office in 2 weeks.
--- NOTE | 2023-01-26 13:40 | P.CDIM_ITS ---
PROVIDER RESPONSE TEXT: To clarify, the appropriate diagnosis supported by the clinical indicators: Hypomagnesemia QUERY TEXT: PHYSICIAN'S DOCUMENTATION REQUEST Date of Query: 01/26/2023 10:29 AM EST Patient Name: SAGE AMOS Admit Date: 01/25/2023 Dear Kavya Cortés, A review of the medical record indicates additional documentation may be needed. Please review below and update the documentation accordingly. Clinical Indicators: LAB FINDINGS: magnesium 1.3 L IV Magnesium Sulfate Based on the above, is there a diagnosis that correlates with these lab findings: Hypomagnesemia Labs indicate a diagnosis of (please specify) Other (explain) Clinically unable to determine (explain) Thank you, Wilma Carroll, CCS, CDIS Use of terms such as suspected, likely, concern for, or probable (associated with a specific diagnosi s that is being evaluated, monitored, or treated as if it exists) are acceptable and can be coded in the inpatient se tting, when documented at the time of discharge. Please use your independent medical judgment in providing your response. THIS QUERY IS PART OF THE PERMANENT MEDICAL RECORD
[2023-01-26 15:16] VITALS: BP 103/51; PULSE 55; RESP 20; TEMP 36.4; O2SAT 100
== END 2023-01-26 15:00 | disposition home or self-care (01) | DRG 543 ==
LOC: HO.ED 01-25 00:11 → HO.ICU 01-25 01:38 → HO.IMC 01-25 14:00
PROVIDERS: Internal Medicine Pulmonary Disease; Registered Nurse Community Health; Admitting Provider Obstetrics & Gynecology; Emergency Provider Internal Medicine; Visit Provider Student in an Organized Health Care Education/Training Program
PROC: (CPT 59812; principal; 2023-01-24 00:05)
DX: O03.4 Incomplete spontaneous abortion without complication (principal); D62 Acute posthemorrhagic anemia; O04.6 Delayed or excessive hemorrhage following (induced) termination of pregnancy; E83.42 Hypomagnesemia
CPT/HCPCS: 59812; 0353U; 36415; 76801; 76815; 80048; 80053; 82803; 83605; 83735; 84100; 84702; 85025; 85384; 85610; 85730; 86850; 86900; 86901; 86923; 87480; 87510; 87660; 88305; 93005; 99285; J0613; J2270; J2405; J2590; J2704; J3010; J3475; P9016; P9017; P9073

== ENCOUNTER → 2023-01-24 23:06 | Outpatient (BNV) | payer MEDICAID, SELFPAY | PROVIDERS: Emergency Provider Internal Medicine; Visit Provider Obstetrics & Gynecology | DX: O03.4 Incomplete spontaneous abortion without complication (principal); D62 Acute posthemorrhagic anemia | CPT/HCPCS: 59812; 99222 ==

== ENCOUNTER → 2023-01-25 01:24 | Outpatient (BNV) | payer MEDICAID, SELFPAY | PROVIDERS: Admitting Provider Obstetrics & Gynecology; Emergency Provider Internal Medicine; Visit Provider Registered Nurse Community Health | DX: O03.4 Incomplete spontaneous abortion without complication (principal); D62 Acute posthemorrhagic anemia | CPT/HCPCS: 99291 ==

== ENCOUNTER → 2023-01-25 01:24 | Outpatient (BNV) | payer MEDICAID, SELFPAY | PROVIDERS: Admitting Provider Obstetrics & Gynecology; Emergency Provider Internal Medicine; Visit Provider Student in an Organized Health Care Education/Training Program | DX: O03.4 Incomplete spontaneous abortion without complication (principal); D62 Acute posthemorrhagic anemia | CPT/HCPCS: 99239 ==